=== PATIENT | male | born 1960 | race Caucasian/White ===

== ENCOUNTER 2017-02-19 15:37 | Emergency (ER) | payer BC ==
[2017-02-19] MEDS ORDERED: Aspirin 81 MG Tab.Chew PO ONE (16:08)
[2017-02-19] MEDS ORDERED: Sodium Chloride 0.9% 250 ML IV SCH (16:15)
--- NOTE | 2017-02-19 16:18 | EDM.PDOC ---
ED HPI GENERAL MEDICAL PROBLEM - General Chief Complaint: Chest Pain Stated Complaint: CHEST PAINS,FINGERS TINGLY,COMING BY OWN VEHICLE Time Seen by Provider: 02/19/17 16:07 Source of Information: Reports: Patient History Limitations: Reports: No Limitations - History of Present Illness INITIAL COMMENTS - FREE TEXT/NARRATIVE: 56 yo male c/o chest pain X many months PMHx. DM and GERD. Pt. admits to SOB w / exertion and some sweating but denies radiation to jaw and no N&V. Pt. works in [employer] and does alto of Physical work Onset: Unknown/Unsure Duration: Week(s): Location: Reports: Chest Quality: Reports: Ache Severity: Moderate Improves with: Reports: Rest Worsens with: Reports: Movement Associated Symptoms: Reports: No Other Symptoms - Related Data Allergies Allergy/AdvReac Type Severity Reaction Status Date / Time No Known Allergies Allergy Verified 02/19/17 15:59 Home Meds: Home Meds Aspirin [Ecotrin] 81 mg PO DAILY 05/07/13 [History] Canagliflozin [Invokana] 300 mg PO DAILY 05/07/13 [History] Fluticasone/Salmeterol [Advair 250-50 Diskus] 1 puff INH BID 05/07/13 [History] Insulin Glarg,Human.Rec.Analog [LantUS] 40 unit SUBCUT DAILY 05/07/13 [History] Omeprazole 20 mg PO DAILY 05/07/13 [History] metFORMIN [metFORMIN XR] 500 mg PO BID 05/07/13 [History] Lutein Extract/Zeaxanthin Ext [Lutein 15 MG Softgel] 1 tab PO ASDIRECTED [History] Valsartan/Hydrochlorothiazide [Valsartan-Hctz 160-25 mg Tab] 1 tab PO ASDIRECTED 02/19/17 [History] ED ROS GENERAL - Review of Systems Review Of Systems: See Below Constitutional: Reports: No Symptoms HEENT: Reports: No Symptoms Respiratory: Reports: No Symptoms Cardiovascular: Reports: Chest Pain Endocrine: Reports: No Symptoms GI/Abdominal: Reports: No Symptoms : Reports: No Symptoms Musculoskeletal: Reports: Other (anterior chest pain) Skin: Reports: No Symptoms Neurological: Reports: No Symptoms Psychiatric: Reports: No Symptoms Hematologic/Lymphatic: Reports: No Symptoms Immunologic: Reports: No Symptoms ED EXAM, GENERAL - Physical Exam Exam: See Below Exam Limited By: No Limitations General Appearance: Alert, No Apparent Distress Eye Exam: Bilateral Eye: EOMI, PERRL Ears: Normal External Exam, Normal Canal Nose: Normal Inspection Throat/Mouth: Normal Inspection, Normal Lips Head: Atraumatic Neck: Normal Inspection Respiratory/Chest: No Respiratory Distress, Lungs Clear, Other (tenderness to costocartilege) Cardiovascular: Normal Peripheral Pulses, Regular Rate, Rhythm Peripheral Pulses: 2+: Radial (L), Radial (R), Femoral (L), Femoral (R) GI/Abdominal: Normal Bowel Sounds, Soft Back Exam: Normal Inspection, Full Range of Motion Extremities: Normal Inspection, Normal Range of Motion Neurological: Alert, Oriented, CN II-XII Intact, Normal Cognition Psychiatric: Normal Affect Skin Exam: Warm, Dry, Intact Lymphatic: No Adenopathy Course - Vital Signs Last Recorded V/S: Last Vital Signs Temp 37.2 C 02/19/17 16:03 Pulse 78 02/19/17 16:03 Resp 20 02/19/17 16:03 BP 153/68 H 02/19/17 16:03 Pulse Ox 98 02/19/17 16:03 - Orders/Labs/Meds Orders: Active Orders 24 hr Category Date Time Status EKG Documentation Completion [RC] STAT Care 02/19/17 16:08 Active Chest 1V Frontal [CR] Urgent Exams 02/19/17 16:20 Taken Heparin Sodium/D5W [Heparin 25,000 Units in D5W 500 ML] Med 02/19/17 17:00 Active 25,000 units in 500 ml IV TITRATE Sodium Chloride 0.9% [Normal Saline] 250 ml Med 02/19/17 16:15 Active IV ASDIRECTED Medication Orders Sodium Chloride (Normal Saline) 250 mls @ 50 mls/hr IV ASDIRECTED DILAN Last Admin: 02/19/17 16:47 Dose: 50 mls/hr Heparin Sodium/Dextrose (Heparin 25,000 Units In D5w 500 Ml) 25,000 units in 500 mls @ 0 mls/hr IV TITRATE DILAN; 1,000 UNITS/KG/HR PRN Reason: Protocol Labs: Laboratory Tests 02/19/17 02/19/17 02/19/17 Range/Units 15:53 15:53 15:53 WBC 10.1 H (5.0-10.0) 10^3/uL RBC 4.99 (4.6-6.2) 10^6/uL Hgb 14.0 (14.0-18.0) g/dL Hct 41.1 (40.0-54.0) % MCV 82.4 (80-100) fL MCH 28.1 (27.0-34.0) pg MCHC 34.1 (33.0-35.0) g/dL Plt Count 233 (150-450) 10^3/uL Neut % (Auto) 72.4 (42.2-75.2) % Lymph % (Auto) 18.3 L (20.5-50.1) % [place] % (Auto) 6.7 (2-8) % Eos % (Auto) 2.2 (1.0-3.0) % Baso % (Auto) 0.4 (0.0-1.0) % D-Dimer, Quantitative < 100 (0-400) ng/mL Sodium 139 (135-145) mmol/L Potassium 3.5 L (3.6-5.0) mmol/L Chloride 103 (101-111) mmol/L Carbon Dioxide 26.0 (21.0-31.0) mmol/L Anion Gap 13.5 BUN 21 H (7-18) mg/dL Creatinine 0.9 (0.6-1.3) mg/dL Est Cr Clr Drug Dosing 85.69 mL/min Estimated GFR (MDRD) > 60 BUN/Creatinine Ratio 23.33 Glucose 168 H (74-105) mg/dL Calcium 9.6 (8.4-10.2) mg/dl Total Bilirubin 0.7 (0.2-1.0) mg/dL AST 22 (10-42) IU/L ALT 21 (10-60) IU/L Alkaline Phosphatase 64 (42-121) IU/L Troponin I 0.14 H* (0.00-0.02) ng/ml Total Protein 7.0 (6.7-8.2) g/dl Albumin 4.1 (3.2-5.5) g/dl Globulin 2.9 Albumin/Globulin Ratio 1.41 Meds: Medications Generic Name Dose Route Start Last Admin Trade Name Freq PRN Reason Stop Dose Admin Sodium Chloride 250 mls @ 50 mls/hr 02/19/17 16:15 02/19/17 16:47 Normal Saline IV 50 mls/hr ASDIRECTED DILAN Administration Heparin Sodium/Dextrose 25,000 units in 500 mls @ 0 mls/hr 02/19/17 17:00 Heparin 25,000 Units In D5w 500 Ml IV TITRATE [facility] Protocol 1,000 UNITS/KG/HR Discontinued Medications Generic Name Dose Route Start Last Admin Trade Name Katharina PRN Reason Stop Dose Admin Aspirin 324 mg 02/19/17 16:08 02/19/17 16:45 Aspirin PO 02/19/17 16:09 324 mg ONETIME ONE Administration Heparin Sodium (Porcine) Confirm 02/19/17 16:54 Heparin Sodium Administered 02/19/17 16:55 Dose 5,000 units .ROUTE .STK-MED ONE Heparin Sodium (Porcine) 5,000 units 02/19/17 17:00 Heparin Sodium IVPUSH 02/19/17 17:01 .BOLUS ONE Heparin Sodium/Dextrose Confirm 02/19/17 16:54 Heparin 25,000 Units In D5w 500 Ml Administered 02/19/17 16:55 Dose 500 mls @ as directed .ROUTE .STK-MED ONE Departure - Departure Time of Disposition: 17:06 Disposition: DC/Tfer to Acute Hospital 02 Reason for Transfer *Q: Primary PCI Indicated Condition: Fair Clinical Impression: Acute myocardial infarction Qualifiers: Myocardial infarction ST status: non-ST elevation myocardial infarction Qualified Code(s): I21.4 - Non-ST elevation (NSTEMI) myocardial infarction Forms: ED Department Discharge, Interfacility Transfer EMTALA - My Orders Last 24 Hours: My Active Orders 02/19/17 16:08 EKG Documentation Completion [RC] STAT 02/19/17 16:15 Sodium Chloride 0.9% [Normal Saline] 250 ml IV ASDIRECTED 02/19/17 16:20 Chest 1V Frontal [CR] Urgent 02/19/17 17:00 Heparin Sodium/D5W [Heparin 25,000 Units in D5W 500 ML] 25,000 units in 500 ml IV TITRATE - Assessment/Plan Last 24 Hours: My Active Orders 02/19/17 16:08 EKG Documentation Completion [RC] STAT 02/19/17 16:15 Sodium Chloride 0.9% [Normal Saline] 250 ml IV ASDIRECTED 02/19/17 16:20 Chest 1V Frontal [CR] Urgent 02/19/17 17:00 Heparin Sodium/D5W [Heparin 25,000 Units in D5W 500 ML] 25,000 units in 500 ml IV TITRATE
[2017-02-19 16:32] LABS: CHLORIDE,CL 103 mmol/L (101-111); SODIUM,NA 139 mmol/L (135-145)
[2017-02-19] MEDS ORDERED: Heparin Sodium 5,000 Units/ML Vial ONE (16:54)
[2017-02-19] MEDS ORDERED: Heparin Sodium/D5W 500 ML ONE (16:54)
[2017-02-19] MEDS ORDERED: Heparin Sodium 5,000 Units/ML Vial IVPUSH ONE (17:00)
[2017-02-19] MEDS ORDERED: Heparin Sodium/D5W 25,000 UNITS/500 ML BAG IV SCH (17:00)
--- NOTE | 2017-04-04 07:25 | EKG ---
02/19/2017- VASQUEZ, PIERRE HAINES - This 12-lead EKG showing normal sinus rhythm with a ventricular rate of 73 beats per minute. Normal NE interval, QRS duration. No QT prolongation. Normal axis. No acute ST-T changes. [facility] /[id number]
== END 2017-02-19 17:47 ==
LOC: DL.ED 15:37
DX: I21.4 Non-ST elevation (NSTEMI) myocardial infarction (principal); Z79.82 Long term (current) use of aspirin; Z79.899 Other long term (current) drug therapy
CPT/HCPCS: 36415; 71010; 80053; 84484; 85025; 85379; 93005; 96365; 99285; A9270; J1644; J7050

== ENCOUNTER → 2017-03-30 | Day surgery (SDC) | payer BC ==
[~2017-03-30] MED LIST: Acetaminophen 325 MG Tab PO PRN; Cataract Ophth Solution EYELF ONE; Moxifloxacin 0.5% Ophth Soln 3 ML Bottle EYELF ONE; Ondansetron 4 MG/2 ML SDV IVPUSH PRN; Phenylephrine 10% Ophth Soln 5 ML Bot EYELF ONE; Phenylephrine 10% Ophth Soln 5 ML Bot EYELF PRN; Povidone-Iodine 5% Sterile Ophth Soln 30 ML Bottle EYELF ONE; Proparacaine 0.5% Ophth Soln 15 ML Bottle EYELF ONE; Sodium Chloride 0.9% 10 ML Syringe FLUSH PRN; Timolol Maleate 0.5% Ophth Soln 5 ML Bottle EYELF ONE
== END | disposition home or self-care (01) ==
LOC: DL.SDS 06:34
PROVIDERS: ATTEND Ophthalmology
DX: Z53.8 Procedure and treatment not carried out for other reasons (principal); H26.9 Unspecified cataract; I10 Essential (primary) hypertension; E78.00 Pure hypercholesterolemia, unspecified; I25.10 Atherosclerotic heart disease of native coronary artery without angina pectoris; J45.909 Unspecified asthma, uncomplicated; G47.30 Sleep apnea, unspecified; K21.9 Gastro-esophageal reflux disease without esophagitis; Z90.49 Acquired absence of other specified parts of digestive tract; E11.9 Type 2 diabetes mellitus without complications; Z79.01 Long term (current) use of anticoagulants; Z91.040 Latex allergy status
CPT/HCPCS: 82962; J7050

== ENCOUNTER 2018-07-19 07:58 | Day surgery (SDC) | payer BC, OTHER ==
[~2018-07-19 07:58] MED LIST changes: -Acetaminophen 325 MG Tab PO PRN; -Cataract Ophth Solution EYELF ONE; +Dextrose 5%-0.45% NaCl 1,000 ML IV SCH; +Midazolam 1 MG/ML 2 ML SDV ONE; -Moxifloxacin 0.5% Ophth Soln 3 ML Bottle EYELF ONE; -Ondansetron 4 MG/2 ML SDV IVPUSH PRN; -Phenylephrine 10% Ophth Soln 5 ML Bot EYELF ONE; -Phenylephrine 10% Ophth Soln 5 ML Bot EYELF PRN; -Povidone-Iodine 5% Sterile Ophth Soln 30 ML Bottle EYELF ONE; -Proparacaine 0.5% Ophth Soln 15 ML Bottle EYELF ONE; -Sodium Chloride 0.9% 10 ML Syringe FLUSH PRN; -Timolol Maleate 0.5% Ophth Soln 5 ML Bottle EYELF ONE; +fentaNYL 100 MCG/2 ML SDV ONE
[2018-07-19] MEDS ORDERED: fentaNYL 100 MCG/2 ML SDV IV ONE ×3 (07:59→09:13)
[2018-07-19] MEDS ORDERED: Midazolam 1 MG/ML 2 ML SDV IV ONE ×5 (07:59→09:16)
--- NOTE | 2018-07-19 10:00 | OR ---
DATE: 07/19/2018 PREOPERATIVE DIAGNOSIS: Crampy abdominal pain. POSTOPERATIVE DIAGNOSIS: Crampy abdominal pain. PROCEDURE: Total colonoscopy. ANESTHESIA: Conscious sedation with IV Versed and fentanyl. SPECIMEN: None. FINDINGS: Normal colonoscopy. RECOMMENDATION: Followup colonoscopy for polyp screening in 10 years. INDICATION FOR PROCEDURE: This 58-year-old male was referred by LILIANE Cr, for evaluation of history of crampy abdominal pain. He has not had a prior colonoscopy. DESCRIPTION OF PROCEDURE: After adequate preparation, a colonoscope was inserted into the rectum. This was easily passed all the way to the cecum. Confirmation of the cecum was made by visualization of the ileocecal valve and palpation in the right lower quadrant. The bowel prep was excellent. On withdrawal of the scope, no abnormalities were noted. The anal and rectal examination were also normal. Air was suctioned from the colon, and the scope removed. [facility] /[id number]
== END 2018-07-19 10:44 | disposition home or self-care (01) ==
LOC: DL.ENDO 07:58
PROVIDERS: ATTEND Surgery
DX: R10.9 Unspecified abdominal pain (principal); Z79.4 Long term (current) use of insulin; Z79.82 Long term (current) use of aspirin; Z79.899 Other long term (current) drug therapy
CPT/HCPCS: 45378; J2250; J3010; J7042

== ENCOUNTER 2019-05-25 09:12 | Day surgery (SDC) | payer BC, OTHER ==
[~2019-05-25 09:12] MED LIST changes: +Benzocaine 20% Topical Spray UD MUCMEM ONE; -Dextrose 5%-0.45% NaCl 1,000 ML IV SCH; -fentaNYL 100 MCG/2 ML SDV ONE
[2019-05-25] MEDS ORDERED: Midazolam 1 MG/ML 2 ML SDV IV ONE ×5 (09:13→10:30)
[2019-05-25] MEDS ORDERED: Dextrose 5%-0.45% NaCl 1,000 ML IV SCH (09:45)
[2019-05-25] MEDS ORDERED: Benzocaine 20% Topical Spray UD MUCMEM ONE (10:26)
--- NOTE | 2019-05-25 12:27 | OR ---
DATE: 05/25/2019 PREOPERATIVE DIAGNOSIS: Gastroesophageal reflux symptoms, belching, abdominal bloating. POSTOPERATIVE DIAGNOSIS: Gastroesophageal reflux symptoms, belching, abdominal bloating. PROCEDURE: EGD with biopsy for PyloriTek H. pylori evaluation. ANESTHESIA: Conscious sedation with IV Versed. SPECIMEN: Pre-pyloric antral biopsy for H. pylori. OPERATIVE FINDINGS: A small 1 to 2 cm hiatal hernia with eversion of the gastric mucosa. This should not be significant. He also has some hyperplastic polyps within the body of the stomach indicative of proton pump inhibitor treatment. No other abnormalities were noted. INDICATION FOR PROCEDURE: This 59-year-old male presents to [facility] for evaluation of increased belching and bloating. He also complains of a nasty bad taste and smell with the belching. PROCEDURE IN DETAIL: After adequate preparation, a gastroscope was inserted into the esophagus. This was passed down to the distal esophagus. This shows no evidence of distal esophagitis, but he does have about a 1 to 2 cm hiatal hernia with eversion of the gastric mucosa into the EG junction. The scope was advanced into the stomach. Both forward and retroflexed views were done. The only abnormality is some hyperplastic polyp formation in the body of the stomach, shows no evidence of gastritis. The pylorus is open. The scope was advanced into the duodenum, which is normal. On retrieval of the scope into the stomach, I did a biopsy to evaluate for H. pylori. Otherwise, examination is normal. Air was suctioned from the stomach and the scope removed. [facility] /[id number]
== END 2019-05-25 12:05 | disposition home or self-care (01) ==
LOC: DL.ENDO 09:12
PROVIDERS: ATTEND Surgery
DX: K31.7 Polyp of stomach and duodenum (principal); K44.9 Diaphragmatic hernia without obstruction or gangrene; K21.9 Gastro-esophageal reflux disease without esophagitis; E11.9 Type 2 diabetes mellitus without complications; G89.29 Other chronic pain; M54.5 Low back pain; I25.10 Atherosclerotic heart disease of native coronary artery without angina pectoris; Z79.4 Long term (current) use of insulin; Z79.899 Other long term (current) drug therapy
CPT/HCPCS: 43239; 87077; A9270; J2250; J7042